=== PATIENT | female | born 1955 | race Caucasian/White ===

== ENCOUNTER 2016-12-04 13:42 | Emergency (ER) | payer MEDICARE ==
[2016-12-04 18:49] LABS: URINE BILIRUBIN NEGATIVE (NEGATIVE); URINE BLOOD 1+ (NEGATIVE); URINE GLUCOSE (UA) NEGATIVE (NEGATIVE); URINE LEUKOCYTE ESTERASE NEGATIVE (NEGATIVE); URINE NITRITE NEGATIVE (NEGATIVE); URINE PROTEIN NEGATIVE (NEGATIVE); URINE UROBILINOGEN NORMAL (0-1 mg/dl)
[2016-12-04 18:53] LABS: URINE APPEARANCE HAZY; URINE COLOR DARK YELLOW
[2016-12-04 19:03] LABS: URINE BACTERIA 1+
--- NOTE | 2016-12-04 19:45 | CT ---
MAGALIS ANDRES Noncontrast CT abdomen and Pelvis COMPARISON:None CLINICAL HISTORY:Intermittent abdominal pain PROCEDURE: Helical CT using multidetector technique was applied to the abdomen and pelvis. No contrast was given per ordering physician. Sagittal, axial and coronal images are reviewed. Findings CT abdomen (noncontrast): Lung bases are clear. Heart is not enlarged. There is no pericardial effusion. Noncontrast images liver show no abnormality. There is motion artifact within the abdomen. Multiple gallstones are identified but the gallbladder is not distended. There is no suspicious biliary dilation. Pancreas, spleen, adrenal glands and right kidney are within normal limits. The left kidney is absent. Aorta is normal caliber. The IVC is flattened suggesting a component of dehydration. Portal vein is not clearly visualized on this noncontrast exam. Stomach, small bowel and colon are within normal limits. There is no free air, free fluid or suspicious adenopathy. There is a small fat filled umbilical hernia. Advanced degenerative disc disease is present at L5-S1. CT pelvis (noncontrast): The bladder is partially filled. Uterus and ovaries are absent. There are a few sigmoid colon diverticuli without current evidence for diverticulitis. Small bowel is not dilated. The appendix is not identified. There is no free air, free fluid or suspicious adenopathy. IMPRESSION: 1. Somewhat limited exam due to motion 2. Cholelithiasis without current gallbladder distention or biliary dilation 3. Distal colonic diverticulosis without current evidence for diverticulitis 4. Nonvisualization of the appendix. There is no inflammation in this region. 5. Absent uterus and ovaries 6. Advanced degenerative disc disease L5-S1 7. Small fat filled umbilical hernia 8. Absent left kidney Note:The above report was uploaded to [facility]'s electronic medical records system at 1941 hours.
[2016-12-04] MEDS ORDERED: CEPHALEXIN 250 MG CAPSULE ONE (19:53)
== END 2016-12-04 20:30 | disposition home or self-care (01) ==
LOC: ED 13:42
DX: N39.0 Urinary tract infection, site not specified (principal); K80.20 Calculus of gallbladder without cholecystitis without obstruction; K42.9 Umbilical hernia without obstruction or gangrene; M51.37 Other intervertebral disc degeneration, lumbosacral region; G30.9 Alzheimer's disease, unspecified; F02.80 Dementia in other diseases classified elsewhere, unspecified severity, without behavioral disturbance, psychotic disturbance, mood disturbance, and anxiety; Z90.710 Acquired absence of both cervix and uterus